=== PATIENT | male | born 1960 | race Caucasian/White ===

== ENCOUNTER 2017-04-15 16:15 | Emergency (ER) | payer OTHER ==
[~2017-04-15] VITALS: Ht 167.6 cm; Wt 84.0 kg
[2017-04-15 16:18] VITALS: BP 104/69
[2017-04-15] MEDS ORDERED: KETOROLAC 30 MG/1 ML ONE (16:57)
[2017-04-15] MEDS ORDERED: KETOROLAC 30 MG/1 ML IM ONE (17:00)
== END 2017-04-15 20:12 | disposition home or self-care (01) ==
LOC: ED 19:00
DX: S22.080A Wedge compression fracture of T11-T12 vertebra, initial encounter for closed fracture (principal); G89.11 Acute pain due to trauma; Z79.82 Long term (current) use of aspirin; X58.XXXA Exposure to other specified factors, initial encounter; Y93.89 Activity, other specified; Y92.89 Other specified places as the place of occurrence of the external cause; Y99.8 Other external cause status
CPT/HCPCS: 72110; 96372; 99284; J1885

== ENCOUNTER → 2017-08-18 | Outpatient (CLI) | payer OTHER | END | disposition home or self-care (01) | LOC: RAD 08:27 | PROVIDERS: ATTEND Physician Assistant | DX: S22.080S Wedge compression fracture of T11-T12 vertebra, sequela (principal); S22.060S Wedge compression fracture of T7-T8 vertebra, sequela; M54.5 Low back pain; G89.29 Other chronic pain; X58.XXXS Exposure to other specified factors, sequela | CPT/HCPCS: 72072; 72100 ==